=== PATIENT | male | born 1950 | race Caucasian/White ===

== ENCOUNTER 2020-10-21 10:52 | Emergency (ER) | payer MEDICARE ==
[~2020-10-21] VITALS: Ht 177.8 cm; Wt 79.5 kg
--- NOTE | 2020-10-21 11:22 | NUR ---
PT C/O DIZZINESS AND N/V X 2 DAYS. HX BRAIN TUMOR. PT ORIENTED TO NAME, , YEAR. MONTH = JUL. PLACE = [facility]. DENIES NAUSEA & ABD PAIN CURRENTLY. REPORTS DIZZINESS ROOM SPINNING. SPEECH CLEAR, RESP EVEN & UNLABORED, SPEECH CLEAR, SKIN WNL. EXTREMITY STRENGTH EQUAL BILAT. NO FACIAL DROOP NOTED.
--- NOTE | 2020-10-21 11:26 | NUR ---
SIGNED DNR W/ PT, COMFORT MEASURES ONLY.
[2020-10-21] MEDS ORDERED: ONDANSETRON 2MG/ML, 2ML ONE (11:29)
[2020-10-21] MEDS ORDERED: SODIUM CHLORIDE FLUSH 10ML SYR IVF ONE (11:30)
[2020-10-21] MEDS ORDERED: ONDANSETRON 2MG/ML, 2ML IVPush ONE (11:30)
[2020-10-21] MEDS ORDERED: PLEASE ENTER HEIGHT AND WEIGHT MC SCH (11:30)
[2020-10-21] MEDS ORDERED: SODIUM CHLORIDE 0.9% 1,000ML IVBOLUS ONE ×2 (11:30→12:30)
[2020-10-21 11:37] LABS: BASOPHILS % (AUTO) 1 % (0-1); EOSINOPHILS % (AUTO) 1 % (1-7); LYMPHOCYTES % (AUTO) 14 % (22-44); MEAN CORPUSCULAR HGB CONC 34.6 g/dL (33.2-36.2); MEAN PLATELET VOLUME 7.7 fL (7.4-10.4); MONOCYTES % (AUTO) 5 % (2-9); NEUTROPHILS % (AUTO) 79 % (42-75); PLATELET COUNT 129 x10^3/uL (130-400); RED BLOOD COUNT 4.43 x10^6/uL (4.38-5.82); RED CELL DISTRIBUTION WIDTH 14.5 % (9.4-14.8)
--- NOTE | 2020-10-21 11:39 | NUR ---
ZOFRAN GIVEN PER EMAR. SPOUSE AT BS. STATES PT EXPERIENCED PAIN FRONTAL LOBE PRIOR TO DIZZINESS AT 0600 YESTERDAY. TUMOR IN LT FRONTAL LOBE. WILL UPDATE ERP.
[2020-10-21] MEDS ORDERED: MEMA10TA PO (11:46)
[2020-10-21] MEDS ORDERED: LEVE100020 PO (11:46)
[2020-10-21] MEDS ORDERED: FURO40TA6 PO (11:46)
[2020-10-21] MEDS ORDERED: SERT100T PO (11:46)
[2020-10-21] MEDS ORDERED: POTA20TA14 PO (11:46)
[2020-10-21 11:49] LABS: ALANINE AMINOTRANSFERASE 16 U/L (12-78); ALBUMIN 3.8 g/dL (3.4-5.0); CALCIUM 9.3 mg/dL (8.5-10.1); CREATININE 0.82 mg/dL (0.7-1.3)
--- NOTE | 2020-10-21 11:50 | NUR ---
TO CT PER TAM
[2020-10-21 11:51] LABS: ALKALINE PHOSPHATASE 100 U/L (45-117); ANION GAP 7 mmol/L (5-15); BILIRUBIN,TOTAL 0.7 mg/dL (0.2-1.0); CHLORIDE 111 mmol/L (98-107)
[2020-10-21 11:59] LABS: MD SCAN
[2020-10-21] MEDS ORDERED: LEVETIRACETAM 1,000 MG in SODIUM CHLORIDE 0.9% 100 ML IV ONE (12:30)
--- NOTE | 2020-10-21 12:41 | NUR ---
2ND NS BOLUS ORDER IN CHART. WILL CONFIRM ORDER W/ ERP.
--- NOTE | 2020-10-21 12:56 | NUR ---
TISH LOPEZ, INFUSING AT 440ML/HR VIA PUMP. IV SITE PATENT.
--- NOTE | 2020-10-21 13:00 | NUR ---
SECOND NS BOLUS HUNG. PT AWARE OF NEED FOR URINE SPECIMEN; URINAL PROVIDED.
--- NOTE | 2020-10-21 13:35 | NUR ---
PT REMINDED OF URINE SPECIMEN NEED.
[2020-10-21 14:00] VITALS: BP 111/67
[2020-10-21 14:42] LABS: MICROSCOPIC INDICATED
--- NOTE | 2020-10-21 14:44 | NUR ---
ABLE TO DRINK WATER W/OUT VOMITING. DENIES NAUSEA, DIZZINESS. NS INFUSING.
--- NOTE | 2020-10-21 15:15 | NUR ---
TASK RN: Patient/Caregiver given discharge instructions and they have confirmed that they understand the instructions. Patient ambulatory to wheelchair for discharge home.
== END 2020-10-21 15:16 | disposition home or self-care (01) ==
LOC: ED 12:40
DX: R11.2 Nausea with vomiting, unspecified (principal); E86.0 Dehydration; R51.9 Headache, unspecified; R42 Dizziness and giddiness; R00.1 Bradycardia, unspecified
CPT/HCPCS: 36415; 70450; 74176; 80053; 81001; 83690; 85025; 93005; 96361; 96365; 96375; 99285; J1953; J2405; J7030